=== PATIENT | female | born 1985 | race Native Hawaiian/Other Pacific Islander ===

== ENCOUNTER 2024-04-19 17:09 | Observation (INO) | payer OTHER ==
--- NOTE | 2024-04-19 17:35 | ED ---
Headache HPI - General Chief Complaint: Headache Stated Complaint: HEAD HURTS, NAUSEA AND DIZZY Time Seen by Provider: 04/19/24 17:24 Source: RN notes reviewed, old records reviewed Mode of arrival: ambulatory Limitations: no limitations - History of Present Illness Initial Comments: This is a 39-year-old female to the ER for evaluation of severe headache. Patient has history of headaches chronic headaches and coming in for headache management, patient is going through outpatient evaluation with no acute diagnosis or treatment that is working MD Complaint: headache, "migraine" -: month(s) Severity: moderate Severity scale (1-10): 4 Quality: aching Consistency: constant Improves With: nothing Worsens With: none Associated Symptoms: nausea, vomiting Other Symptoms: other (0) Treatments Prior to Arrival: none - Related Data Home Medications Medication Instructions Recorded Confirmed No Known Home Medications 04/19/24 04/19/24 Allergies Allergy/AdvReac Type Severity Reaction Status Date / Time Penicillins Allergy Rash/Hives Verified 04/19/24 18:42 muscle relaxers AdvReac Falls Uncoded 04/19/24 18:42 asleep immediately, wakes up feeling drunk Review of Systems ROS Statement: Those systems with pertinent positive or pertinent negative responses have been documented in the HPI. ROS Other: All systems not noted in ROS Statement are negative. Past Medical History Past Medical History: Osteoarthritis (OA) Additional Past Medical History / Comment(s): arthritis bilateral knees History of Any Multi-Drug Resistant Organisms: None Reported Past Surgical History: Cholecystectomy, Orthopedic Surgery Additional Past Surgical History / Comment(s): EGD x 2 w/biopsy, 4 Rt knee surgeries (cleaning out and torn maniscus, Lt knee torn maniscus Past Anesthesia/Blood Transfusion Reactions: Motion Sickness Past Psychological History: Bipolar Smoking Status: Current every day smoker Past Alcohol Use History: Rare Past Drug Use History: None Reported - Past Family History Mother Family Medical History: Cancer Additional Family Medical History / Comment(s): lung cancer Father Additional Family Medical History / Comment(s): brain tumors General Exam Limitations: no limitations General appearance: alert, in no apparent distress Head exam: Present: atraumatic, normocephalic, normal inspection Eye exam: Present: normal appearance, PERRL, EOMI. Absent: scleral icterus, conjunctival injection, periorbital swelling ENT exam: Present: normal exam, mucous membranes moist Neck exam: Present: normal inspection. Absent: tenderness, meningismus, l ymphadenopathy Respiratory exam: Present: normal lung sounds bilaterally. Absent: respiratory distress, wheezes, rales, rhonchi, stridor Cardiovascular Exam: Present: regular rate, normal rhythm, normal heart sounds. Absent: systolic murmur, diastolic murmur, rubs, gallop, clicks GI/Abdominal exam: Present: soft, normal bowel sounds. Absent: distended, tenderness, guarding, rebound, rigid Extremities exam: Present: normal inspection, full ROM, normal capillary refill. Absent: tenderness, pedal edema, joint swelling, calf tenderness Back exam: Present: normal inspection Neurological exam: Present: alert, oriented X3, CN II-XII intact Psychiatric exam: Present: normal affect, normal mood Skin exam: Present: warm, dry, intact, normal color. Absent: rash Course Vital Signs 04/19/24 17:16 Temperature 98.2 F Pulse Rate 70 Respiratory 20 Rate Blood Pressure 166/91 O2 Sat by Pulse 100 Oximetry - Reevaluation(s) Reevaluation #1: 04/19/24 18:24 Record is reviewed Reevaluation #2: 04/19/24 18:24 Headache is improved Reevaluation #3: 04/19/24 18:24 Patient informed of results and questions answered Reevaluation #4: Was pt. sent in by a medical professional or institution (, PA, CONTINUOUS PROCESS ROTARY DRUM TANNER, urgent care, hospital, or long term...) When possible be specific @ -no Did you speak to anyone other than the patient for history (EMS, parent, family, police, friend...)? What history was obtained from this source @ -no Did you review nursing and triage notes (agree or disagree)? Why? @ -agree Are old charts reviewed (outside hosp., previous admission, EMS record, old EKG, old radiological studies, urgent care reports/EKG's, long term records)? Report findings @ -yes Differential Diagnosis (chest pain, altered mental status, abdominal pain women, abdominal pain men, vaginal bleeding, weakness, fever, dyspnea, syncope, headache, dizziness, GI bleed, back pain, seizure, CVA, palpatations, mental health, musculoskeletal)? @ -prior EKG interpreted by me (3pts min.). @ -yes X-rays interpreted by me (1pt min.). @ -yes negative for acute disease CT interpreted by me (1pt min.). @ -no U/S interpreted by me (1pt. min.). @ -no What testing was considered but not performed or refused? (CT, X-rays, U/S, labs)? Why? @ -none What meds were considered but not given or refused? Why? @ -none Did you discuss the management of the patient with other professionals (professionals i.e. , PA, CONTINUOUS PROCESS ROTARY DRUM TANNER, lab, RT, psych nurse, manager social responsibility, probate lawyer, teacher, community liaison officer, rn field case manager)? Give summary @ -no Was smoking cessation discussed for >3mins.? @ -no Was critical care preformed (if so, how long)? @ -no Were there social determinants of health that impacted care today? How? (Homelessness, low income, unemployed, alcoholism, drug addiction, transportation, low edu. Level, literacy, decrease access to med. care, [facility], rehab)? @ -none Was there de-escalation of care discussed even if they declined (Discuss DNR or withdrawal of care, Hospice)? DNR status @ -no What co-morbidities impacted this encounter? (DM, HTN, Smoking, COPD, CAD, Cancer, CVA, ARF, Chemo, Hep., AIDS, mental health diagnosis, sleep apnea, morbid obesity)? @ -none Was patient admitted / discharged? Hospital course, mention meds given and route, prescriptions, significant lab abnormalities, going to OR and other pertinent info. @ - Undiagnosed new problem with uncertain prognosis? @ -no Drug Therapy requiring intensive monitoring for toxicity (Heparin, Nitro, Insulin, Cardizem)? @ -no Were any procedures done? @ -no Diagnosis/symptom? @ - Acute, or Chronic, or Acute on Chronic? @ -Acute Uncomplicated (without systemic symptoms) or Complicated (systemic symptoms)? @ -Complicated Side effects of treatment? @ -no Exacerbation, Progression, or Severe Exacerbation? @ -exacerbation Poses a threat to life or bodily function? How? (Chest pain, [place], [place], pneumonia, PE, COPD, DKA, ARF, appy, cholecystitis, CVA, Diverticulitis, Homicidal, Suicidal, threat to staff... and all critical care pts) @ -yes Reevaluation #5: Differential Headache: Migraine, tension, cluster, carbon monoxide, central venous thrombosis, pension karma temporal arteritis, acute closure glaucoma, intercranial hemorrhage, mastoiditis, sinusitis, head injury, this is not meant to be an all-inclusive list. - Consultations Consultation #1: spoke w [facility] who agrees to admit the patient Medical Decision Making - Medical Decision Making 39 Female to ER for evaluation of headache, patient is going through diagnosis of pseudotumor cerebri she believes, currently coming in with vision changes and headache and will admit for neurology evaluation - Lab Data Result diagrams: 04/19/24 18:04 04/19/24 18:04 Lab Results 04/19/24 04/19/24 04/19/24 Range/Units 18:04 18:04 18:04 WBC 9.4 (3.8-10.6) k/uL RBC 5.44 H (3.80-5.40) m/uL Hgb 16.0 (11.4-16.0) gm/dL Hct 46.6 H (34.0-46.0) % MCV 85.6 (80.0-100.0) fL MCH 29.4 (25.0-35.0) pg MCHC 34.4 (31.0-37.0) g/dL RDW 13.9 (11.5-15.5) % Plt Count 224 (150-450) k/uL MPV 8.7 Neutrophils % 60 % Lymphocytes % 31 % Monocytes % 5 % Eosinophils % 2 % Basophils % 1 % Neutrophils # 5.6 (1.3-7.7) k/uL Lymphocytes # 2.9 (1.0-4.8) k/uL Monocytes # 0.5 (0-1.0) k/uL Eosinophils # 0.2 (0-0.7) k/uL Basophils # 0.1 (0-0.2) k/uL PT 10.1 (10.0-12.5) sec INR 0.9 (<1.2) APTT 23.5 (22.0-30.0) sec Sodium 137 (137-145) mmol/L Potassium 4.8 (3.5-5.1) mmol/L Chloride 114 H (98-107) mmol/L Carbon Dioxide 20 L (22-30) mmol/L Anion Gap 3 mmol/L BUN 15 (7-17) mg/dL Creatinine 0.81 (0.52-1.04) mg/dL Est GFR (CKD-EPI)AfAm >90 (>60 ml/min/1.73 sqM) Est GFR (CKD-EPI)NonAf >90 (>60 ml/min/1.73 sqM) Glucose 88 (74-99) mg/dL Plasma Lactic Acid Joe (0.7-2.0) mmol/L Calcium 9.6 (8.4-10.2) mg/dL Phosphorus 4.1 (2.5-4.5) mg/dL Magnesium 2.1 (1.6-2.3) mg/dL Total Bilirubin 0.5 (0.2-1.3) mg/dL AST 19 (14-36) U/L ALT 15 (4-34) U/L Alkaline Phosphatase 85 (38-126) U/L Troponin I (0.000-0.034) ng/mL NT-Pro-B Natriuret Pep 30 pg/mL Total Protein 7.1 (6.3-8.2) g/dL Albumin 4.4 (3.5-5.0) g/dL 04/19/24 04/19/24 Range/Units 18:04 18:04 WBC (3.8-10.6) k/uL RBC (3.80-5.40) m/uL Hgb (11.4-16.0) gm/dL Hct (34.0-46.0) % MCV (80.0-100.0) fL MCH (25.0-35.0) pg MCHC (31.0-37.0) g/dL RDW (11.5-15.5) % Plt Count (150-450) k/uL MPV Neutrophils % % Lymphocytes % % Monocytes % % Eosinophils % % Basophils % % Neutrophils # (1.3-7.7) k/uL Lymphocytes # (1.0-4.8) k/uL Monocytes # (0-1.0) k/uL Eosinophils # (0-0.7) k/uL Basophils # (0-0.2) k/uL PT (10.0-12.5) sec INR (<1.2) APTT (22.0-30.0) sec Sodium (137-145) mmol/L Potassium (3.5-5.1) mmol/L Chloride (98-107) mmol/L Carbon Dioxide (22-30) mmol/L Anion Gap mmol/L BUN (7-17) mg/dL Creatinine (0.52-1.04) mg/dL Est GFR (CKD-EPI)AfAm (>60 ml/min/1.73 sqM) Est GFR (CKD-EPI)NonAf (>60 ml/min/1.73 sqM) Glucose (74-99) mg/dL Plasma Lactic Acid Joe 1.1 (0.7-2.0) mmol/L Calcium (8.4-10.2) mg/dL Phosphorus (2.5-4.5) mg/dL Magnesium (1.6-2.3) mg/dL Total Bilirubin (0.2-1.3) mg/dL AST (14-36) U/L ALT (4-34) U/L Alkaline Phosphatase (38-126) U/L Troponin I <0.012 (0.000-0.034) ng/mL NT-Pro-B Natriuret Pep pg/mL Total Protein (6.3-8.2) g/dL Albumin (3.5-5.0) g/dL - Radiology Data Radiology results: report reviewed (CT brain is negative for acute disease), image reviewed Disposition Clinical Impression: Headache Disposition: ADMITTED IP TO THIS [facility] Condition: Fair Is patient prescribed a controlled substance at d/c from ED?: No Time of Disposition: 18:00
[2024-04-19 18:17] LABS: Basophils # (A) 0.1 k/uL (0-0.2); Basophils % (A) 1 %; Eosinophils # (A) 0.2 k/uL (0-0.7); Eosinophils % (A) 2 %; HCT 46.6 % (34.0-46.0); Lymphocytes # (A) 2.9 k/uL (1.0-4.8); Lymphocytes % (A) 31 %; MCH 29.4 pg (25.0-35.0); MCHC 34.4 g/dL (31.0-37.0); MCV 85.6 fL (80.0-100.0); Mean Platelet Volume 8.7; Monocytes # (A) 0.5 k/uL (0-1.0); Monocytes % (A) 5 %; Neutrophils # (A) 5.6 k/uL (1.3-7.7); Neutrophils % (A) 60 %; Platelet Count 224 k/uL (150-450); RBC 5.44 m/uL (3.80-5.40); RDW 13.9 % (11.5-15.5); WBC 9.4 k/uL (3.8-10.6)
[2024-04-19] MEDS: SODIUM CHLORIDE 0.9% 1,000 ML IV STA (18:17)
[2024-04-19 18:22] LABS: ALT 15 U/L (4-34); African American GFR (CKD) >90 (>60 ml/min/1.73 sqM); Albumin 4.4 g/dL (3.5-5.0); Anion Gap 3 mmol/L; Blood Urea Nitrogen 15 mg/dL (7-17); Calcium 9.6 mg/dL (8.4-10.2); Carbon Dioxide 20 mmol/L (22-30); Chloride 114 mmol/L (98-107); Glucose 88 mg/dL (74-99); Magnesium 2.1 mg/dL (1.6-2.3); Non-African American GFR(CKD) >90 (>60 ml/min/1.73 sqM); Sodium 137 mmol/L (137-145); Total Bilirubin 0.5 mg/dL (0.2-1.3); Total Protein 7.1 g/dL (6.3-8.2)
[2024-04-19] MEDS ORDERED: MORPHINE SULFATE 4 MG/ML SYRINGE IV PRN (18:22)
[2024-04-19] MEDS ORDERED: ONDANSETRON 4 MG/2 ML VIAL IVP PRN (18:22)
[2024-04-19] MEDS ORDERED: NALOXONE 0.4 MG/ML 1 ML VIAL IV PRN (18:22)
[2024-04-19 18:29] LABS: NT-Pro-B-Type Natriuretic Pept 30 pg/mL
[2024-04-19 18:30] LABS: AST 19 U/L (14-36); Alkaline Phosphatase 85 U/L (38-126); Phosphorus 4.1 mg/dL (2.5-4.5); Potassium 4.8 mmol/L (3.5-5.1)
[2024-04-19 18:33] LABS: INR 0.9 (<1.2); Partial Thromboplastin Time 23.5 sec (22.0-30.0); Prothrombin Time 10.1 sec (10.0-12.5)
[2024-04-19] MEDS: KETOROLAC 15 MG/ML 1 ML VIAL IVP STA (18:37)
[2024-04-19] MEDS: PROCHLORPERAZINE INJ 10 MG/2 ML VIAL IVP STA (18:38)
[2024-04-19] MEDS: diphenhydrAMINE 50 MG/ML 1 ML VIAL IVP STA (18:38)
--- NOTE | 2024-04-19 18:41 | CT ---
EXAMINATION TYPE: CT brain wo con DATE OF EXAM: 04/19/2024 6:11 PM COMPARISON: None available. CLINICAL INDICATION: Female, 39 years old with history of bethea, BETHEA. TECHNIQUE: Brain: Axial CT images of the brain were obtained with coronal and sagittal reformats created and rev iewed. Contrast used: None. Oral contrast used: None. CT DLP: 1168.4 mGycm, Automated exposure control for dose reduction was used. FINDINGS: Brain: Extra-axial spaces: No abnormal extra-axial fluid collections. Ventricular system: Within normal limits Cerebral parenchyma: No acute intraparenchymal hemorrhage or mass effect. The johnson-white junction is well differentiated. Cerebellum: Unremarkable. Mass effect: No evidence of midline shift. Intracranial vasculature: unremarkable Soft tissues: Normal. Calvarium/osseous structures: No depressed skull fracture. Paranasal sinuses and mastoid air cells: Mild scattered paranasal sinus disease. Visualized orbits: Orbital contents are intact. IMPRESSION: No acute intracranial process. [facility], , 04/19/2024 6:38 PM
[2024-04-19] MEDS: MORPHINE SULFATE 4 MG/ML SYRINGE IV STA (20:04)
[2024-04-19] MEDS: SODIUM CHLORIDE 0.9% 1,000 ML IV SCH (20:10)
[2024-04-20 04:04] VITALS: RESP 16
[2024-04-20 08:12] VITALS: BP 121/74; PULSE 67; TEMP 97.9
[2024-04-20] MEDS ORDERED: DEXAMETHASONE SOD PHOSPHATE 4 MG/ML 1 ML VIAL IVP PRN (08:13)
--- NOTE | 2024-04-20 08:24 | P.CNNES ---
History of Present Illness Consult date: 04/20/24 Reason for Consult: positional headache ? pseudotumor cerebri Chief complaint: "I have a headache different from my migraines since a muscle injection Fri History of Present Illness: Ms. seay is a 39-year-old right-handed -[place] female with history of migraine headaches as well as osteoarthritis and bipolar disorder as well as fibromyalgia. Patient was admitted to [facility] on April 19 with co mplaints of a severe headache which was constant in nature approximately 4 out of 10 with vision changes. She reports she has a history of migraines since age 9 which consisted of pounding pain with photophobia phonophobia, dizziness, nausea. However this new headache she has had since Thursday is different. She received intramuscular injections on Thursday and following this developed a headache which she describes as on the top of her head, somewhat pulsing, but positional and worse when she stands up. Of note she did see an electric relay tester on March 18 and was told she had elevated pressure in the back of her eyes. She is being planned for a routine spinal tap to check opening pressure for possible diagnosis of pseudotumor cerebri. Currently she has a headache, which she says may be up to 9 out of 10 in nature, again increased when she stands. Neurology was consulted for further management recommendations. Review of Systems Constitutional: Reports as per HPI Eyes: bilateral diplopia (horizontal diplopia on Thursday) Ears, nose, mouth and throat: Reports as per HPI Cardiovascular: Reports as per HPI Respiratory: Reports as per HPI Gastrointestinal: Reports as per HPI, Reports constipation, Reports diarrhea Genitourinary: Reports as per HPI Menstruation: Reports as per HPI Musculoskeletal: Reports as per HPI Integumentary: Reports as per HPI Neurological: Reports as per HPI, Reports migraines Past Medical History Past Medical History: Osteoarthritis (OA) Additional Past Medical History / Comment(s): arthritis bilateral knees, migraine since 9 y/o, bipolar disorder, fibromyalgia History of Any Multi-Drug Resistant Organisms: None Reported Past Surgical History: Cholecystectomy, Orthopedic Surgery Additional Past Surgical History / Comment(s): EGD x 3 w/biopsy, 2x colonscopy, 4 Rt knee surgeries (cleaning out and torn maniscus, Lt knee torn maniscus - 7 knee surgeries total between both knees Past Anesthesia/Blood Transfusion Reactions: No Reported Reaction, Motion Sickness Past Psychological History: Bipolar Additional Psychological History / Comment(s): PMDD Smoking Status: Current every day smoker Past Alcohol Use History: None Reported Past Drug Use History: None Reported - Past Family History Mother Family Medical History: Cancer Additional Family Medical History / Comment(s): lung cancer Father Additional Family Medical History / Comment(s): brain tumors Medications and Allergies Home Medications Medication Instructions Recorded Confirmed Type No Known Home Medications 04/19/24 04/19/24 History Allergies Allergy/AdvReac Type Severity Reaction Status Date / Time Penicillins Allergy Rash/Hives Verified 04/19/24 18:42 muscle relaxers AdvReac Falls Uncoded 04/19/24 18:42 asleep immediately, wakes up feeling drunk Physical Examination - Vital Signs Vital Signs: Vital Signs Temp Pulse Pulse Resp BP BP Pulse Ox 04/20/24 07:00 97.9 F 67 16 121/74 100 04/20/24 03:34 98.0 F 68 16 127/68 99 04/19/24 20:31 98.2 F 58 L 18 155/91 100 04/19/24 20:06 98.0 F 55 L 16 119/73 100 04/19/24 17:16 98.2 F 70 20 166/91 100 Intake and Output 04/19/24 04/20/24 04/20/24 22:59 06:59 14:59 Other: # Voids 1 1 Weight 108.862 kg - Constitutional General appearance: obese - EENT EENT: PERRL - Respiratory Respiratory: chest non-tender, lungs clear - Cardiovascular Cardiovascular: regular rate, no murmurs Extremities: no peripheral edema bilaterally, no clubbing, cyanosis - Gastrointestinal Gastrointestinal: normoactive bowel sounds, non-tender - Integumentary Integumentary: normal - Neurologic Cranial nerve examination: PERRL, EOMI, V1/V2/V3 grossly intact, face symmetric Fundoscopic examination: other (fundoscopic exam not performed, 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 - Laboratory Findings CBC and BMP: 04/19/24 18:04 04/19/24 18:04 Abnormal Lab Findings: Abnormal Labs 04/19/24 04/19/24 18:04 18:04 RBC 5.44 H Hct 46.6 H Chloride 114 H Carbon Dioxide 20 L Assessment and Plan Assessment: Ms. seay is a 39-year-old Afro-[place] female with history of migraine headaches. For the past 5 days she reports a new type of headache which is lo cated on the top of her head and positional in nature. She was told on March 18 she has elevated optic nerves possibly consistent with pseudotumor cerebri. She is pending a spinal tap as ordered by her consulting physician. She was also placed on topiramate but could not tolerate this. Plan: 1. I will order an urgent fluoroscopic guided lumbar puncture with check of opening pressure as well as CSF protein, glucose, CSF culture as well as cell count to document her opening pressure for possible diagnosis of pseudotumor cerebri. 2. I have ordered dexamethasone 10 mg bolus x 1 then 4 mg every 6 hours as needed increased headache. 3. If her opening pressure is elevated, I will likely order acetazolamide 500 mg twice daily for treatment of pseudotumor cerebri. 4. Neurology will continue to follow her in house and make further recommendations as needed.
[2024-04-20] MEDS: DEXAMETHASONE SOD PHOSPHATE 10 MG/ML 1 ML VIAL IVP STA (09:22)
[2024-04-20] MEDS: LORazepam 2 MG/ML INJ IV STA (13:20)
--- NOTE | 2024-04-20 13:36 | P.HPIM ---
History of Present Illness H&P Date: 04/20/24 This is a 39-year female with medical history of headaches, migraine, osteoarthritis, bipolar disorder, fibromyalgia. Patient comes into the hospital with a headache rating it a 4 out of 10 this is not her normal headache. Patient states that she was into her neurologist office Dr. Ramon'magy last Thursday and she got 3 intramuscular injections to the back of her neck and head secondary to a pressure-like headache that was not going away. Patient also was into see her caster operator on 03/18 and was told that she has pressure on the nerves behind her eyes. She always has a mild dull headache at baseline and came into the hospital for further evaluation of this new onset migraine. Currently she is rating this headache 02/01. This headache began after the injections on thursday, the headache is worse when she is standing up and throbbing like sensation. Patient had a negative nondiagnostic brain CT. She was evaluated by neurology and recommending a lumbar puncture for opening and closing pressures. She was in the process of getting an LP on an outpatient basis for rule out pseudotumor cerebri. Initially IR was consulted they recommend the anesthesia perform this lumbar puncture and we are currently pending a time from anesthesia services to complete lumbar puncture. She is continued on Decadron for the migraine at this time. Blood work in essentially unremarkable. REVIEW OF SYSTEMS: CONSTITUTIONAL: No fever, no malaise, no fatigue. HEENT: No recent visual problems or hearing problems. Denied any sore throat. CARDIOVASCULAR: No chest pain, orthopnea, PND, no palpitations, no syncope. PULMONARY: No shortness of breath, no cough, no hemoptysis. GASTROINTESTINAL: No diarrhea, no nausea, no vomiting, no abdominal pain. NEUROLOGICAL: Reports headaches, no weakness, no numbness. HEMATOLOGICAL: Denies any bleeding or petechiae. GENITOURINARY: Denies any burning micturition, frequency, or urgency. MUSCULOSKELETAL/RHEUMATOLOGICAL: Denies any joint pain, swelling, or any muscle pain. ENDOCRINE: Denies any polyuria or polydipsia. The rest of the 14-point review of systems is negative. PHYSICAL EXAMINATION: GENERAL: The patient is alert and oriented x3, not in any acute distress. Well developed, well nourished. HEENT: Pupils are round and equally reacting to light. EOMI. No scleral icterus. No conjunctival pallor. Normocephalic, atraumatic. No pharyngeal erythema. No thyromegaly. CARDIOVASCULAR: S1 and S2 present. No murmurs, rubs, or gallops. PULMONARY: Chest is clear to auscultation, no wheezing or crackles. ABDOMEN: Soft, nontender, nondistended, normoactive bowel sounds. No palpable organomegaly. MUSCULOSKELETAL: No joint swelling or deformity. EXTREMITIES: No cyanosis, clubbing, or pedal edema. NEUROLOGICAL: Gross neurological examination did not reveal any focal deficits. SKIN: No rashes. Plan New onset migraine headache rule out pseduotumor cerebri awaiting Lumbar puncture History of migraines maintained on topamax which has been resumed; recent IM injections by her neurologist on Thursday History of fibromyalgia Bipolar disorder Osteoarthritis GI prophylaxis DVT prophylaxis Full Code Plan Patient is currently not taking any home medications at this time Topamax has been discontinued by her neurologist since the onset of this new migraine. Neurology following Continue decadron PRN per neurology for the migraine Continue supportive care zofran, IV pain medications Pending lumbar puncture The impression and plan of care has been dictated by Tg Stoner Nurse Practitioner as directed. Dr. James MD I have performed a history and physical examination and medical decision making of this patient, discussed the same with the dictator, and agree with the dictators assessment and plan as written, documented as a scribe. Based on total visit time, I have performed more than 50% of this visit. Past Medical History Past Medical History: Osteoarthritis (OA) Additional Past Medical History / Comment(s): arthritis bilateral knees, migraine since 9 y/o, bipolar disorder, fibromyalgia History of Any Multi-Drug Resistant Organisms: None Reported Past Surgical History: Cholecystectomy, Orthopedic Surgery Additional Past Surgical History / Comment(s): EGD x 3 w/biopsy, 2x colonscopy, 4 Rt knee surgeries (cleaning out and torn maniscus, Lt knee torn maniscus - 7 knee surgeries total between both knees Past Anesthesia/Blood Transfusion Reactions: No Reported Reaction, Motion Sickness Past Psychological History: Bipolar Additional Psychological History / Comment(s): PMDD Smoking Status: Current every day smoker Past Alcohol Use History: None Reported Past Drug Use History: None Reported - Past Family History Mother Family Medical History: Cancer Additional Family Medical History / Comment(s): lung cancer Father Additional Family Medical History / Comment(s): brain tumors Medications and Allergies Home Medications Medication Instructions Recorded Confirmed Type No Known Home Medications 04/19/24 04/19/24 History Allergies Allergy/AdvReac Type Severity Reaction Status Date / Time Penicillins Allergy Rash/Hives Verified 04/19/24 18:42 muscle relaxers AdvReac Falls Uncoded 04/19/24 18:42 asleep immediately, wakes up feeling drunk Physical Exam Vitals: Vital Signs Temp Pulse Pulse Resp BP BP Pulse Ox 04/20/24 07:00 97.9 F 67 16 121/74 100 04/20/24 03:34 98.0 F 68 16 127/68 99 04/19/24 20:31 98.2 F 58 L 18 155/91 100 04/19/24 20:06 98.0 F 55 L 16 119/73 100 04/19/24 17:16 98.2 F 70 20 166/91 100 Intake and Output 04/19/24 04/20/24 04/20/24 22:59 06:59 14:59 Other: # Voids 1 1 Weight 108.862 kg Results CBC & Chem 7: 04/19/24 18:04 04/19/24 18:04 Labs: Abnormal Lab Results - Last 24 Hours (Table) 04/19/24 04/19/24 Range/Units 18:04 18:04 RBC 5.44 H (3.80-5.40) m/uL Hct 46.6 H (34.0-46.0) % Chloride 114 H (98-107) mmol/L Carbon Dioxide 20 L (22-30) mmol/L Assessment and Plan Time with Patient: Less than 30
--- NOTE | 2024-04-20 13:50 | P.PCN ---
Description of Procedure: Preprocedure diagnosis. Headache. Postprocedure diagnosis. As above. Procedure done. Attempted lumbar puncture and collection of cerebrospinal fluid. Anesthesia. Ativan 2 mg IV. LOcal infiltration with 1% lidocaine. Continuous pulse ox, EKG, blood pressure and verbal communication was maintained with the patient. Blood loss. None. Indication. Discussed the procedure, alternatives, complications which may include infection, nerve damage, paralysis, aggravation of the symptoms especially bleeding in the spine and posterior dural puncture headache with the patient. The patient understands and questions were answered. Procedure note. After getting concentration in the procedure room in sitting position. Back prepped with chlorhexidine and draped in sterile fashion. After injecting 5 mL of 1% lidocaine subcutaneously, a 22-gauge spinal needle was introduced at L4-5 interspace. I tried multiple attempts without getting success of passing needle between 2 spinous processes secondary to extreme curvature of the spine and patient's intolerance to pain even with mild sedation. To be noted, I even could not get access in the interspinous space. Disposition. Patient tolerated the procedure well. No complication.
--- NOTE | 2024-04-23 20:14 | P.DS ---
Providers Date of admission: 04/19/24 18:22 Attending physician: Carlo Rivera Consults: 04/19/24 18:22 Consult Physician Routine Consulting Provider: Satish Clement Consult Reason/Comments: ?pseudotumorCerebri? Do you want consulting provider notified?: Yes 04/20/24 11:09 Consult to Anesthesia Routine Consulting Provider: Anesthesia,Services Consult Reason/Comments: lumbar puncture Primary care physician: Obed Hernandez [facility] Course: Final Diagnosis New onset migraine headache rule out pseduotumor cerebri awaiting Lumbar puncture History of migraines maintained on topamax which has been resumed; recent IM injections by her neurologist on Thursday History of fibromyalgia Bipolar disorder Osteoarthritis Discharge Disposition Patient is stable for discharge home. Patient to follow up with Dr ramon. Patient to follow up with anesthesia services for LP outpatient under sedation for open and closing pressures. In the meantime she needs to continue oral diamox BID and stop 1 day before the LP for accurate readings. Patient to continue prednisone taper. She is discharged home. Hospital Course This is a 39-year female with medical history of headaches, migraine, osteoarthritis, bipolar disorder, fibromyalgia. Patient comes into the hospital with a headache rating it a 4 out of 10 this is not her normal headache. Patient states that she was into her neurologist office Dr. Ramon's last Thursday and she got 3 intramuscular injections to the back of her neck and head secondary to a pressure-like headache that was not going away. 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 She always has a mild dull headache at baseline and came into the hospital for further evaluation of this new onset migraine. Cu rrently she is rating this headache 9/10. This headache began after the injections on thursday, the headache is worse when she is standing up and throbbing like sensation. Patient had a negative nondiagnostic brain CT. She was evaluated by neurology and recommending a lumbar puncture for opening and closing pressures. She was in the process of getting an LP on an outpatient basis for rule out pseudotumor cerebri. Initially IR was consulted they recommend the anesthesia perform this lumbar puncture and we are currently pending a time from anesthesia services to complete lumbar puncture. She is continued on Decadron for the migraine at this time. Blood work in essentially unremarkable. Anesthesia was unable to perform the LP due to anxiety and discomfort with procedure. Patient will need to do this outpatient under sedation. She is agreeable to this in the mean time neurology recommending prednisone taper and diamox on discharge. Patient to follow up with her usual neurologist Dr Ramon. Please see medication reconciliation for a list of current medications. Thank you for allowing us to participate in the care of this patient. The impression and plan of care has been dictated by Tg Stoner, Nurse Practitioner as directed. Dr. James MD I have performed a history and physical examination and medical decision making of this patient, discussed the same with the dictator, and agree with the dictators assessment and plan as written, documented as a scribe. Based on total visit time, I have performed more than 50% of this visit. Have a sleepover in the upstairs then Patient Condition at Discharge: Fair Plan - Discharge Summary Discharge Rx Participant: No New Discharge Prescriptions: New acetaZOLAMIDE [Diamox] 500 mg PO BID 7 Days #14 tablet Omeprazole 20 mg PO DAILY 30 Days #20 tab methylPREDNISolone [Medrol Dose Pack] 0 mg PO DIRECTED #1 packet Discharge Medication List Omeprazole 20 mg PO DAILY 30 Days #20 tab 04/20/24 [Rx] acetaZOLAMIDE [Diamox] 500 mg PO BID 7 Days #14 tablet 04/20/24 [Rx] methylPREDNISolone [Medrol Dose Pack] 0 mg PO DIRECTED #1 packet 04/20/24 [Rx] Follow up Appointment(s)/Referral(s): [facility] [NON-STAFF] - As Needed (Please call to schedule out patient Lumbar Puncture) Obed Hernández [Primary Care Provider] - 1-2 days Mike Ramon DO [STAFF PHYSICIAN] - 1 Week Patient Instructions/Handouts: Acute Headache (ED) Activity/Diet/Wound Care/Special Instructions: Continue the medrol dose pack Continue the diamox 500 mg twice a day until your lumbar puncture. 1 week has been provided. This medication may cause numbness or tingling in her fingers and around the mouth. This will also make carbonation medications taste flat. You need to stop the diamox the day before your procedure so they can accurately measure the spinal fluid pressure. Discharge Disposition: HOME SELF-CARE
== END 2024-04-20 15:30 | disposition home or self-care (01) ==
LOC: EC 17:09 → 6NMEDSUR 18:22
PROVIDERS: ADMIT Hospitalist; ATTEND Hospitalist
DX: G43.909 Migraine, unspecified, not intractable, without status migrainosus (principal); M43.9 Deforming dorsopathy, unspecified; M79.7 Fibromyalgia; M17.0 Bilateral primary osteoarthritis of knee; F31.9 Bipolar disorder, unspecified; F41.9 Anxiety disorder, unspecified; F17.200 Nicotine dependence, unspecified, uncomplicated; Z88.0 Allergy status to penicillin; Z88.8 Allergy status to other drugs, medicaments and biological substances; Z98.890 Other specified postprocedural states
CPT/HCPCS: 96375 ×2; 96361; 96374; 99285; 36415; 83880; 80053; 83605; 83735; 84100; 84484; 85025; 85610; 85730; 70450; 62270; G0378 ×2; J2060; J1200; J0780; J1100; J1885